=== PATIENT | female | born 2000 | race Caucasian/White ===

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

== ENCOUNTER 2019-09-18 15:40 | Emergency (ER) | payer OTHER ==
--- NOTE | 2019-09-18 15:52 | UC ---
FLU HPI - HPI Summary HPI Summary: Patient is a 19yo female presenting with complaint of nausea, fever of 100, and fatigue x3 days. Patient states she also has b/l lower back pain. States she is on her period and the pain may be from that. Also states she is in [employer]OT[employer] so it's possible she strained her back. Describes back pain as dull ache. Denies URI symptoms. Notes treating herself with otc monostat 3 days ago for what she believes what a yeast infection. Notes she had itching which seems to have resolved with that treatment. Denies urinary frequency, urgency, hematuria, and burning. Notes mild stomach ache the past few days. Denies vomiting and diarrhea. Does note nausea has been improving. Denies any chance of . States she has taken acetaminophen for pain with some relief. Patient states her symptoms "could just be from her period but her mom wanted her to get checked." - History of Current Complaint Stated Complaint: NAUSEA, FEVER, AND CHILLS Hx Obtained From: Patient Onset/Duration: Gradual Onset, Lasting Days - Allergy/Home Medications Allergies/Adverse Reactions: Allergies Allergy/AdvReac Type Severity Reaction Status Date / Time amoxicillin Allergy Rash Verified 09/18/19 15:59 Home Medications: Home Medications Acetaminophen [Tylenol Extra Strength] 1,000 mg PO Q6HR 09/18/19 [History Confirmed 09/18/19] PMH/Surg Hx/FS Hx/Imm Hx Previously Healthy: Yes - Surgical History Surgical History: Yes Surgery Procedure, Year, and Place: ARTHROSCOPIC RIGHT HIP 11/23/17 - Family History Known Family History: Negative: Respiratory Disease, Seizure Disorder, Blood Disorder - Social History Occupation: Student - [employer] Lives: Dormitory/Roommates Alcohol Use: None Substance Use Type: None Smoking Status (MU): Never Smoked Tobacco Review of Systems All Other Systems Reviewed And Are Negative: Yes Constitutional: Positive: Fever, Chills, Fatigue ENT: Positive: Negative Respiratory: Positive: Negative Cardiovascular: Positive: Negative Gastrointestinal: Positive: Abdominal Pain - stomach ache, Nausea. Negative: Vomiting, Diarrhea Genitourinary: Positive: Vaginal/Penile Itching. Negative: Dysuria, Hematuria, Frequency, Urgency, Vaginal/Penile Burning, Vaginal/Penile Discharge, Ulceration /Lesion, Abnormal Bleeding Musculoskeletal: Positive: Myalgia - lower back Neurological: Positive: Negative. Negative: Paresthesia, Numbness Physical Exam Triage Information Reviewed: Yes Appearance: Well-Appearing, No Pain Distress, Well-Nourished Vital Signs: Vital Signs (72 hours) 09/18/19 15:53 Temperature 98.7 F Pulse Rate 83 Respiratory 16 Rate Blood Pressure 108/77 (mmHg) O2 Sat by Pulse 100 Oximetry Vital Signs Reviewed: Yes Eyes: Positive: Conjunctiva Clear ENT: Positive: Hearing grossly normal, Pharynx normal, TMs normal - b/l cerumen impaction, Uvula midline. Negative: Nasal congestion, Nasal drainage Neck exam: Normal Neck: Positive: Supple, Nontender, No Lymphadenopathy Respiratory Exam: Normal Respiratory: Positive: Lungs clear, Normal breath sounds, No respiratory distress Cardiovascular Exam: Normal Cardiovascular: Positive: RRR Abdomen Description: Positive: Nontender, Soft. Negative: CVA Tenderness (R), CVA Tenderness (L), Distended, Guarding, McBurney's Point Tenderness Bowel Sounds: Positive: Present Musculoskeletal: Positive: Other: - minimal lumbar back tenderness. no midline tenderness Neurological: Positive: Alert Psychological: Positive: Age Appropriate Behavior Flu Course/Dx - Course Course Of Treatment: UA positive for trace blood likely from menstrual period. Patient VS and PE findings normal. Instructed to continue with symptomatic relief and to follow up if symptoms persist. Patient declined anti nausea medication stating she " has had a reaction in the past." Instructed to return or go to ED with new or worsening symptoms. Patient voiced understanding and agreed with treatment plan. - Differential Dx/Diagnosis Provider Diagnosis: Acute lumbar back pain, Stomach ache, Nausea Discharge ED - Sign-Out/Discharge Documenting (check all that apply): Patient Departure All imaging exams completed and their final reports reviewed: No Studies - Discharge Plan Condition: Stable Disposition: HOME Patient Education Materials: Viral Syndrome (ED) Referrals: [facility] [Outside] - If Needed Additional Instructions: As discussed, your urine did not indicate infection at this time. Your symptoms are likely caused by a virus and should resolve on their own with time. Continue to get plenty of rest and fluids. You may also continue to take acetaminophen for pain and fever relief. [facility] or the [facility] listed below if symptoms persist. Return or go to the Emergency Room for any new or worsening symptoms. - Billing Disposition and Condition Condition: STABLE Disposition: Home - Attestation Statements Provider Attestation: I was available for consult. This patient was seen by the [facility]. The patient was not presented to, seen by, or examined by me. -Ashvin
[2019-09-18 15:59] VITALS: BP 108/77
== END 2019-09-18 17:03 | disposition home or self-care (01) ==
LOC: UCEAST 15:40
DX: R11.0 Nausea (principal); R10.9 Unspecified abdominal pain; M54.5 Low back pain; R53.83 Other fatigue; R50.9 Fever, unspecified; R68.83 Chills (without fever); N89.8 Other specified noninflammatory disorders of vagina; Z88.0 Allergy status to penicillin
CPT/HCPCS: 81003; 99211; G0463